=== PATIENT | male | born 1970 | race Two or more races ===

== ENCOUNTER → 2021-07-04 | Emergency (ER) | payer OTHER ==
[~2021-07-04] VITALS: Ht 172.7 cm; Wt 90.7 kg
== END | disposition expired ==
LOC: ER 18:36
DX: T75.1XXA Unspecified effects of drowning and nonfatal submersion, initial encounter (principal); Y93.11 Activity, swimming; Y92.59 Other trade areas as the place of occurrence of the external cause; Y99.8 Other external cause status